=== PATIENT | female | born 1985 | race Hispanic/Latino ===

== ENCOUNTER 2018-05-08 15:50 | Day surgery (SDC) | payer SELFPAY ==
[2018-05-08 16:52] VITALS: BMI 26.2
[2018-05-08 18:00] LABS: Bilirubin Negative (Negative); Blood, Urine Negative (Negative); Clarity CLEAR (Clear); Glucose, Urine (Dipstick) Negative (Negative); Leukocyte Negative (Negative); Nitrite Negative (Negative); Protein, Urine (Dipstick) 30 mg/dL (Neg-Trace); Specific Gravity, Urine 1.027 (1.002-1.036); Urobilinogen 0.2 mg/dL (0.2-1.0)
[2018-05-08 18:05] LABS: Bacteria/HPF None Seen HPF (None Seen); Hyaline Casts/LPF 0-3 HYALINE CAST LPF (0-3 Hyaline); Pathc Cast-AUWi Flag 0.29 (0-2.49); RBC/HPF 0-3 HPF (0-3); Squamous Epithelial 0-3 HPF (0-3); WBC/HPF 0-3 HPF (0-3)
--- NOTE | 2018-05-08 19:47 | PRG ---
DATE OF SERVICE: 05/08/2018 Primary OB is in [place]. CHIEF COMPLAINT: Lower abdominal cramping and urinary hesitancy. HISTORY OF PRESENT ILLNESS: The patient is a 32-year-old G3, P2 female with an intrauterine reported at 36 weeks and 5 days, who is presenting to Labor and Delivery with complaints of vaginal discharge, "Menstrual cramping" and swelling. The patient reports that she had just completed an 18-hour car ride from [place] a couple of days ago and in the process was not feeling very well. The patient was out with family and friends today and decided to come in to be seen in case something more serious was occurring. The patient reports that she has been feeling menstrual like cramping. She also reports that she has been having more discharge than usual in the last couple of days and is having hesitancy with urination. The patient reports that she had been receiving care in [place] and had brought up her medical records with her and has an appointment tomorrow with the clinic. The patient denies any recent illness, fever, fall, headache, chest pain, shortness of breath, nausea, vomiting, diarrhea, constipation. She denies any new rashes, hip problems, knee problems, muscle weakness. Denies vaginal bleeding. Denies urinary pain. PAST MEDICAL HISTORY: Negative. PAST SURGICAL HISTORY: Negative. OBSTETRIC HISTORY: She has had 2-term vaginal deliveries. SOCIAL HISTORY: Denies drug, alcohol, tobacco use. ALLERGIES: NEGATIVE. MEDICATIONS: vitamins. OB LABS: Unavailable. REVIEW OF SYSTEMS: Per HPI. PHYSICAL EXAMINATION: VITAL SIGNS: Blood pressure 99/54, heart rate of 91, respiratory rate of 18, saturating 99% on room air, temperature 99.1. GENERAL: She appears to be in no acute distress. She is alert and oriented, cooperative and pleasant to interact with. HEAD: Normocephalic, atraumatic. LUNGS: Clear to auscultation bilaterally. HEART: Has regular rate and rhythm. ABDOMEN: Gravid, soft. She does have some suprapubic tenderness to palpation and some left lower quadrant inguinal tenderness with deviation of the uterus. She has no CVA tenderness. She has no vertebral tenderness. She does have SI joint tenderness bilaterally to palpation. EXTREMITIES: Nontender, nonedematous. : Per nursing staff, cervix is closed, thick, and high. DIAGNOSTIC DATA: heart tracing performed for menstrual cramping, baseline is noted to be in the 130s with moderate long-term variability, positive 15 x 15 accelerations and no decelerations. She has some irritability seen on the monitor, but no consistent contractions. Urinalysis shows a clear yellow urine with a pH of 8, spec gravity of 1.027, protein of 1+, negative ketones, negative blood, negative nitrites, negative leukocyte esterase, 0-3 red blood cells, 0-3 white blood cells, 0-3 squamous cells, and no bacteria. VPIII is pending results. ASSESSMENT AND PLAN: The patient is a 32-year-old female with an intrauterine at 36 weeks and 5 days, who just arrived from [place] a couple of days ago after an 18-hour car ride and has some musculoskeletal pains, ligamentous in nature. She has no evidence of urinary tract infection, though her urine is quite concentrated today. We have a VPIII pending for evaluation. No evidence of labor by cervical check or heart monitoring. Fetus has a category 1 tracing. The patient has an appointment tomorrow with clinic, which we have encouraged that she keep. We have also encouraged that she take her records there for review as she did not bring them today, so that they can update any evaluation that is necessary. Once the VPIII results are available, the patient will be discharged to home with appropriate treatment. VP3 results are negative. Job ID: [id number] [facility]
== END 2018-05-08 19:09 | disposition home or self-care (01) ==
LOC: L&D/OP 15:50
PROVIDERS: ATTEND Obstetrics & Gynecology
DX: O99.89 Other specified diseases and conditions complicating pregnancy, childbirth and the puerperium (principal); R10.30 Lower abdominal pain, unspecified; N89.8 Other specified noninflammatory disorders of vagina; Z79.899 Other long term (current) drug therapy; Z3A.36 36 weeks gestation of pregnancy
CPT/HCPCS: 81001; 87480; 87510; 87660; 99284

== ENCOUNTER 2018-05-19 22:23 | Day surgery (SDC) | payer OTHER ==
[2018-05-19 23:11] VITALS: BMI 27.1
[2018-05-19 23:28] LABS: Amnisure Internal Control QC ACCEPTABLE (ACCEPTABLE)
--- NOTE | 2018-05-19 23:34 | PDOC.LDHP ---
Labor and Delivery H&P Chief complaint: loss of fluid HPI: 32 yo at 37wks by LMP and 22wk US received from [place] presents with LOF Current gestational age (weeks): 37 Due date: 06/06/18 Dating criteria: last menstrual period, second trimester ultrasound Grav: 3 Para: 2 OB History Details: 2 LTCS Current complications: none Abnormal US findings: No (anterior placenta) Past Medical History: none Current medications: none Previous surgical history: low tranverse CS Allergies/Adverse Reactions: Allergies Allergy/AdvReac Type Severity Reaction Status Date / Time No Known Allergies Allergy Verified 05/19/18 23:00 Social history: none - Physical Exam Vital signs reviewed and normal: yes General: NAD Heart: RRR Lungs: CTAB Abdomen: NTTP Extremeties: no edema FHT: variability present (baeline 140, accels, no decels) - Vaginal Exam cm dilated: 0 Effacement: 0% Station: -3 - OB Labs Additional Labs: pt to bring labs from [place] to clinic - Plan -: ROM r/o - no pooling, post-tussive fluid, amnisure negative, closed cervix - reassuring strip - unlikely ruptured/in active labor - DC home with labor precautions Addendum - Attending - Attending Attestation Date/Time: 05/20/18 0815 I personally evaluated the patient and discussed the management with Dr. Velasco I agree with the History, Examination, Assessment and Plan documented above with any addition or exceptions noted below. No evidence for SROM. No pooling on SSE, neg amniosure.
[2018-05-19 23:37] LABS: Amnisure Test No Membranes Rupture (No Rupture)
== END 2018-05-20 00:12 | disposition home or self-care (01) ==
LOC: L&D/OP 22:23
PROVIDERS: ATTEND Emergency Medicine
DX: O99.89 Other specified diseases and conditions complicating pregnancy, childbirth and the puerperium (principal); N89.8 Other specified noninflammatory disorders of vagina; Z3A.37 37 weeks gestation of pregnancy; Z79.899 Other long term (current) drug therapy
CPT/HCPCS: 84112; 99284

== ENCOUNTER 2018-06-06 09:53 | Inpatient (IN) | payer MEDICAID, OTHER ==
[~2018-06-06 09:53] MED LIST: Bicitra 30 ML UDCUP PO SCH; CEFAZOLIN 2 GM in Premix Bag 1 BAG IVPB SCH; Ondansetron PF 4 MG/2 ML Vial IVP PRN; Promethazine HCl 25 MG/ML VIAL IM PRN
[2018-06-06] MEDS: Lactated Ringer's 1,000 ML IV SCH ×3 (10:25→16:35)
[2018-06-06 10:28] VITALS: BMI 28.0
[2018-06-06] MEDS ORDERED: Ketorolac Tromethamine 30 MG/ML VIAL ONE ×2 (10:36→12:54)
[2018-06-06] MEDS ORDERED: PHENYLEPHRINE-NS 100 MCG/ML 10 ML SYRINGE ONE ×2 (10:36→12:00)
[2018-06-06] MEDS ORDERED: Ondansetron PF 4 MG/2 ML Vial ONE ×2 (10:36→12:00)
[2018-06-06 10:43] LABS: Hemoglobin 10.4 g/dL (12.0-16.0); Mean Corpuscular HGB CONC 32.2 g/dL (32.0-36.0); Mean Corpuscular Hemoglobin 24.7 pg (27.0-31.0); Mean Corpuscular Volume 76.7 fL (78.0-98.0); Mean Platelet Volume 8.4 fL (7.4-10.4); Platelet Count 372 thou/uL (130-400); RBC Distribution Width 13.3 % (11.5-14.5); Red Blood Cell (RBC) Count 4.19 mill/uL (4.20-5.40); White Blood Cell (WBC) Count 11.4 thou/uL (4.8-10.8)
[2018-06-06 11:26] LABS: HBSAg Index 0.18 S/CO (0-0.99); Hep B Surf Ag Non-Reactive S/CO (NonReactive)
[2018-06-06] MEDS ORDERED: Oxytocin 10 UNITS/ML VIAL ONE ×2 (11:59→13:33)
[2018-06-06] MEDS ORDERED: ePHEDrine/0.9% NaCl/PF SYRINGE 50 mg/10 ml ONE ×2 (12:00→16:00)
[2018-06-06] MEDS ORDERED: Morphine PF 1 MG/ML SYR ONE (12:03)
[2018-06-06] MEDS ORDERED: Promethazine HCl 25 MG/ML VIAL IM PRN ×2 (12:52→16:56)
[2018-06-06] MEDS ORDERED: Ondansetron PF 4 MG/2 ML Vial IVP PRN (12:52)
[2018-06-06] MEDS ORDERED: Eucerin (Mineral Oil/Petrolatum,White) 30 gm Jar TOP PRN (12:52)
[2018-06-06] MEDS ORDERED: Naloxone HCl 0.4 mg/ml Vial IV PRN (12:52)
[2018-06-06] MEDS ORDERED: Promethazine HCl 25 MG SUPP PR PRN (12:52)
[2018-06-06] MEDS ORDERED: Naloxone HCl 0.4 mg/ml Vial IVP PRN ×2 (12:52)
[2018-06-06] MEDS ORDERED: Ketorolac Tromethamine 30 MG/ML VIAL IVP PRN (12:52)
[2018-06-06] MEDS ORDERED: diphenhydrAMINE 50 MG/ML VIAL IVP PRN (12:52)
[2018-06-06] MEDS ORDERED: Midazolam HCl 2 mg/2 ml Vial ONE (12:55)
[2018-06-06] MEDS ORDERED: Communication Order-Pharmacy FS SCH (13:00)
--- NOTE | 2018-06-06 14:16 | PDOC.FPROB ---
FMR OB H&P: HPI - History of Present Illness Chief Complaint: scheduled repeat delivery Indentification: 32 yo female at 39.4 wks by LMP/22.5 wk sono History of Present Illness: Ms Mendez is a 32 yo female at 39.4 wks by LMP/22.5 wk sono admitted for scheduled repeat delivery. Patient denies any complications or symptoms. Reports good movement. Denies LOF, contractions, vaginal bleeding, or discharge. Primary Care Physician: Adry Camilo MD and Deandre López DO clinic FMR OB H&P: Current - Care : 3 Para: 2001 Gestational age: 39.4 wks Due date: 06/09/2018 Dating Criteria: LMP/22.5 wk sono Total weight gain: 15 lbs Course/Complications: Late transfer of care from [place], Anemia of , hx of LTCS x2, hx of blood transfusion after second delivery - OB Labs Blood type: O RH: positive Antibody Screen: negative HIV: negative RPR: negative HepBsAg: negative Rubella: immune Quad screen: unknown Urine drug screen: not done Gonorrhea: negative Chlamydia: negative Pap Smear: NILM/HPV positive (05/20/2018) 1 hour gtt: not done A1c: 5.7% GBS: negative (05/20/18) H&H: 10.05/01.3 Platelets: 347 Additional labs: TB screening negative Zika negative - First Trimester Ultrasound First trimester: not done - Anatomy Survey Anatomy survey: Performed in [place]. Report translated. Performed at 22.5 wks. Grossly normal anatomy. Male fetus. Anterior placenta. - Additional Ultrasound Additional: 37.1 wks EFW = 3248g (68%) ALEX = 8.59 cm Cephalic Anterior placenta. Not low lying. Limited anatomy grossly normal. Gender not identified. FMR OB H&P: History - Past Medical History PMH: none - OB History OB History: 05/02/11: 39 wks 7 lb 12 oz male delivery arrest of labor 07/21/12: 39 wks 6 lb 13 oz female delivery required blood transfusion after delivery - [employer] History [employer] History: menes age 13, LMP = 09/02/2017, Denies STI and abnormal pap smears - Surgical History Sx History: delivery x2 -- LTCS - Social History Social History: . 2 children. Lives in [place]. Denies T/A/D use. Denies abuse. - Family History Family History: Diabetes, child with abnormal genitalia FMR OB H&P: Medications - Current Home Medications: Medication Instructions Recorded Confirmed Type Ferrous Sulfate [Iron] 325 mg PO DAILY 05/08/18 05/08/18 History Pnv,Calcium 72/Iron/Folic Acid 1 tab PO DAILY 05/08/18 05/08/18 History [ Plus Tablet] Calcium Carbonate [Tums Extra 2 tablet PO Q2HR PRN 05/19/18 05/19/18 History Strength] Allergies/Adverse Reactions: Allergies Allergy/AdvReac Type Severity Reaction Status Date / Time No Known Allergies Allergy Verified 06/06/18 10:18 FMR OB H&P: ROS - Review of Systems General: reports: fatigue. denies: fever/chills, weight/appetite/sleep changes Eyes: denies: eye pain, vision changes, double vision, scotomas, floaters ENT: denies: nasal congestion, rhinorrhea Cardiovascular: denies: chest pain, palpitation, edema Respiratory: denies: cough, congestion, shortness of breath Gastrointestinal: denies: abdominal pain, indigestion, cramping, nausea, vomiting, diarrhea, constipation Genitourinary (Female): denies: dysuria, hematuria, vaginal discharge, vaginal bleeding, contractions Musculoskeletal: denies: pain, stiffness, swelling Neurologic: denies: numbness, weakness Integumentary: denies: rash, lesions Breast: denies: masses, skin changes Hematologic/Lymphatic: denies: prolonged or excessive bleeding, enlarged lymph nodes Psychological: denies: depression, anxiety FMR OB H&P: Vital Signs - Maternal Vital signs: Vital Signs - First Documented Temp Pulse Resp BP 98.0 F 83 18 105/66 06/06/18 10:19 06/06/18 10:19 06/06/18 10:19 06/06/18 10:19 - Heart Tones Baseline: 140 Variability: moderate Acceleration: present Deceleration: absent Category: category 1 [place] contractions every: occasional FMR OB H&P: Physical Exam - Physical Exam General: NAD, awake, alert and oriented HEENT: normocephalic and atraumatic, PERRLA, EOMI, MMM, conjunctiva clear, grossly normal vision, grossly normal hearing, normal nasal mucosa, good dention Neck: supple, FROM, trachea midline Chest: non-tender to palpation, no lesions Heart: RRR, normal S1/S2, pulses present, no edema General: CTAB, no respiratory distress, good air movement Abdomen: soft, gravid, fundus(cm) (37), non-tender, bowel sound present, no hernias Musculoskeletal: normal gait and station, pulses present, FROM in all four extremities Neurological: cranial nerves II through XII intact, sensation to pain,touch and proprioception grossly normal Skin: no rash, good tugor Lymphatic: no unusual bruising or bleeding Psychiatric: good judgement and insight, normal mood and affect - Pelvic Exam Presentation: Cephalic Estimated Weight: 7 lbs FMR OB H&P: Results - Labs Lab results: Laboratory Results - last 24 hr 06/06/18 06/06/18 06/06/18 10:26 10:26 10:26 WBC 11.4 H RBC 4.19 L Hgb 10.4 L Hct 32.2 L MCV 76.7 L MCH 24.7 L MCHC 32.2 RDW 13.3 Plt Count 372 MPV 8.4 Hep Bs Antigen Non-Reactive Blood Type O POSITIVE Antibody Screen NEGATIVE Crossmatch See Detail 06/06/18 11:55 WBC RBC Hgb Hct MCV MCH MCHC RDW Plt Count MPV Hep Bs Antigen Blood Type O POSITIVE Antibody Screen Crossmatch - Imaging Imaging: Bedside sono: Cephalic. Grossly normal ALEX. Anterior placenta. High bladder, concern for scaring. FMR OB H&P: A/P - Problem List (1) Current Visit: Yes Status: Acute Qualifiers: Weeks of gestation: 39 weeks Qualified Code(s): Z3A.39 - 39 weeks gestation of Assessment and Plan: IOB labs reviewed. Anatomy reviewed. 3T sono report reviewed. s/p Flu. Needs Tdap prior to discharge. GBS negative. Would like LARC for contraception. (2) History of delivery affecting Current Visit: Yes Status: Acute Code(s): O34.219 - MATERNAL CARE FOR UNSP TYPE SCAR FROM PREVIOUS DEL Assessment and Plan: Scheduled for repeat LTCS today. R/B/A discussed. Questions answered. Consents signed. Admission labs reviewed. Placenta anterior and low. Bladder appears high , concern for possible scarring of bladder to lower uterine segment. Fetus cephalic. EFW 7.5 to 8 lbs by [place]. (3) Anemia affecting in third trimester Current Visit: Yes Status: Acute Code(s): O99.013 - ANEMIA COMPLICATING , THIRD TRIMESTER Assessment and Plan: H&H stable. Will continue PNV in period. Increase iron rich foods. Add supplemental iron as needed. Will repeat H&H in the morning. (4) Late care affecting in third trimester Current Visit: Yes Status: Acute Code(s): O09.33 - SUPRVSN OF PREG W INSUFFICIENT ANTENAT CARE, THIRD TRIMESTER Assessment and Plan: Poor initial care. Late transfer from [place]. TB and Zika negative. Anatomy sono performed in [place]. Sibling with ambiguous female genitalia. No genetic screening. Limited 3T sono. (5) History of blood transfusion Current Visit: Yes Status: Acute Code(s): Z92.89 - PERSONAL HISTORY OF OTHER MEDICAL TREATMENT Assessment and Plan: Unsure need for blood transfusion other than anemia with last delivery. Will place 2 units on hold. Disposition: Proceed to OR when available. Signature: Alex
--- NOTE | 2018-06-06 14:16 | PDOC.OP ---
Operative Note - Operative Note Operative Note: Date of Procedure: 06/06/2018 Primary Surgeon: Sarita Camilo MD City Carrier Assistant Surgeon: Katherine López DO Preoperative Diagnosis: 1. Pacheco intrauterine at 39.4 weeks gestation dated by LMP/22.5 wk sono 2. Late transfer of care from [place] 3. Anemia of 4. Previous history of blood transfusion 5. History of LTCS x2 Postoperative Diagnosis: 1. Same Procedure Performed: 1. Repeat low transverse section 2. Lysis of adhesions Anesthesia: Spinal Indications for the Procedure: Ms. Mendez is a 32 year old female at 39.4 weeks gestation by LMP/22.5 wks sono admitted for scheduled repeat low transverse delivery. Surgical risks: The patient was informed of the risk and benefits of the procedure. Risks included but were not limited to bleeding, infection, injury to internal organs , and possible hysterectomy. The patient expressed understanding of the risks involved. All questions were answered and the patient consented to the procedure. Description of the procedure: The patient was taken to the operating room where a time out was performed to confirm correct patient and correct procedure. Spinal was adequately established and prophylactic IV antibiotics were administered. The patient was then placed in the dorsal supine position with a left tilt of the hips. Pressure points were padded. A Bovie grounding pad was placed on the patients right lower extremity. Pearce catheter was placed to monitor urine output during the case. A Chaitanya hugger was placed to maintain control of core body temperature. The patient was then prepped and draped in the usual sterile fashion for a Pfannensteil skin incision. An incision was made in the skin with a surgical scalpel and sharp and blunt dissection was carried out over the subsequent layers of tissue including the fascia, followed by the Bovie electrocautery for hemostasis. The fascia was incised at the midline. The fascial incision was extended bilaterally using curved Monsalve scissors/blunt dissection. The superior edge of the fascial incision was grasp with Mervin clamps, tented up and the underlying rectus muscles were dissected off bluntly and sharply using Bovie electrocautery. Attention was then turned to the inferior edge, which was grasped with Mervin clamps, tented up and the underlying rectus muscles were dissected off bluntly and sharply using curved Monsavle scissors. The rectus muscles were then divided at midline. The peritoneum was identified and bluntly entered at its superior margin taking care to avoid the bladder. The peritoneal incision was extended superiorly/inferiorly/laterally using blunt dissection/Bovie electrocautery with good visualization of the bladder and bowel. One large uterine adhesion was identifited and dissected with care with Bovie electrocautery. The bladder blade was inserted. The vesicouterine peritoneum was identified and noted to be adhessed to lower uterine segment. The peritoneum was picked up with Barbadian forceps and cut laterally to both sides using Metzenbaum scissors. A bladder flap was then created using blunt and sharp dissection. The bladder blade was reinserted and a transverse incision was made in the lower uterine segment using the scalpel. The uterine incision was extended cranial and caudally using blunt dissection. The surgeons hand was placed into the uterine cavity. The head was identified, elevated into the abdomen and delivered through the uterine incision with the assistance of fundal pressure. The infant was delivered en caul. No nuchal cord was identified. The was then delivered with traction and the assistance of fundal pressure. The had strong cry. Cord clamping was delayed for at least 60 seconds was clamped and cut. The was then passed off the table to the awaiting lorena team for further care. Cord blood was collected for routine analysis. The placenta was expressed manually intact with three-vessel cord. Oxytocin was administered by IV infusion to enhance uterine contractions. The uterus was exteriorized and cleared of all clots and remaining products of conception. The uterine incision was reapproximated using 0 Monocryl in a running locked fashion. A second horizontal imbricating stitch with 0 Monocryl suture was applied.Non-hemostatic areas were reinforced using 0 Monocryl suture in [id number] stitches x1. Good hemostasis was confirmed. The abdomen was evaluated, suctioned and cleared of visible clots. The uterus was replaced into the abdomen and the pericolic gutter were cleared of all clots. The fascia was reapproximated using 0 PDS in a running non-locked fashion. Fascia and surrounding tissue were irrigated with warm NS followed by Bovie electrocautery for non-hemostatic areas. The subcuticular tissue was reapproximated using 3-0 Plain Gut in simple interrupted fashion. The skin was reapproximated using 4-0 Monocryl. Dermabond along with a pressure dressing were placed at the end of the case. All needle, sponge, and instrument counts were noted to be correct x 3 at the end of the procedure. The patient tolerated the procedure well and was transferred to the recovery room in stable condition. Intravenous Fluids: 2 L LR Urine output: 300 mL, clear urine Qualitative Blood Loss: 595 mL Findings: Viable Male delivered at 13:00 weighing 3512g with scores of 8 and 9 at one and five minutes, respectively. Normal appearing uterus, ovaries, and fallopian tubes bilaterally. Placenta intact with 3VC, discarded. Complications: Large uterine band-like adhesion Disposition: Routine recovery. Once stable, routine care. Alex
[2018-06-06] MEDS: ePHEDrine/0.9% NaCl/PF SYRINGE 50 mg/10 ml SLOW IVP SCH ×2 (16:04→16:36)
[2018-06-06] MEDS ORDERED: diphenhydrAMINE 25 MG CAP PO PRN (16:56)
[2018-06-06] MEDS ORDERED: Simethicone Chewable 80 MG TAB PO PRN (16:56)
[2018-06-06] MEDS ORDERED: Bisacodyl 10 MG SUPP PR PRN (16:56)
[2018-06-06] MEDS ORDERED: Acetaminophen 325 MG TAB PO PRN (16:56)
[2018-06-06] MEDS ORDERED: NS / Oxytocin 40 units/1000ml 1,000 ML IV SCH (16:56)
[2018-06-06] MEDS ORDERED: Adacel (T-DAP) 0.5 ML SYRINGE IM ONE (16:56)
[2018-06-06] MEDS ORDERED: Lanolin Ointment 7 GM TUBE TOP PRN (16:56)
[2018-06-06] MEDS ORDERED: Lactated Ringer's 500 ML IV SCH (17:00)
--- NOTE | 2018-06-06 17:02 | PDOC.EVN ---
Event Note - Event Note Event Note: Called by Dr. López for hypotension. I was observing during the . Case was hemostatic upon closure. Patient initially systolic low 100's at termination of surgery and eventually dropped to the 70's, at which point anesthesia was called and ephedrine was given with improvement. Upon arrival patient mentating well, smiling, in no distress and says she is very comfortable. RRR s M CTAB s w/r/r Soft abdomen, NTTP, dressing in place and dry, no ecchymosis visible Toilette has been as expected FAST SC with no effusion, good squeeze Neg nguyen's, sig gas as expected LUQ with unremarkable spleen and kidney Suprapubic with uterus as expected and no echolucent areas or mixed echogenicity to suggest recent bleed I anticipate hypotension 2/2 anesthesia, no sign of bleeding requiring reoperation. Monitor closely. Handoff given to night team and I will update Dr. López. BP in the 90's at my last evaluation. CBC will be ordered.
[2018-06-06 18:05] LABS: #Basophils 0.1 thou/uL (0.0-0.2); #Eosinphils 0.1 thou/uL (0.0-0.7); #Lymphocytes 1.6 thou/uL (1.20-3.40); #Neutrophils 9.7 thou/uL (1.40-6.50); %Basophils 0.5 % (0.0-1.0); %Eosinophils 0.5 % (0.0-10.0); %Lymphocytes 12.9 % (21.0-51.0); %Monocytes 7.9 % (0.0-10.0); %Neutrophils 78.2 % (42.0-75.0); Hemoglobin 9.6 g/dL (12.0-16.0); Mean Corpuscular HGB CONC 31.1 g/dL (32.0-36.0); Mean Corpuscular Volume 80.3 fL (78.0-98.0); Mean Platelet Volume 8.2 fL (7.4-10.4); Platelet Count 302 thou/uL (130-400); RBC Distribution Width 13.3 % (11.5-14.5); Red Blood Cell (RBC) Count 3.83 mill/uL (4.20-5.40); White Blood Cell (WBC) Count 12.4 thou/uL (4.8-10.8)
[2018-06-07] MEDS ORDERED: HYDROcodone/Acetaminophen 5/325 mg Tablet PO PRN ×2 (01:00)
[2018-06-07] MEDS ORDERED: Lactated Ringer's 1,000 ML IV SCH (03:15)
--- NOTE | 2018-06-07 03:36 | PDOC.EVN ---
Event Note - Event Note Event Note: Paged by nursing at 0100 that patients BP was 70s/40s. Patient examined by myself and Dr. Simons. Gave order to bolus remainder of LR with pitocin ( approximately 600 mL). After bolus, BP remained unchanged. Gave order to bolus additional 1L of LR. This brought BP to 90/53 (MAP 65). Will add lactic acid to AM labs to verify adequate tissue perfusion and continue LR at 125 mL/hr. Hypotension likely due to spinal anesthesia that is finally resolving vs dehydration. Patient does not exhibit any signs of intraabdominal hemorrhage and had negative FAST scan early today. If BP drops again, will repeat FAST and consider obtaining CT- Abdomen and pelvis to further evaluate. Patient has had minimal vaginal bleeding during this time. Discussed with Dr. Dillard.
[2018-06-07 03:39] LABS: Hemoglobin 9.2 g/dL (12.0-16.0); Mean Corpuscular HGB CONC 31.8 g/dL (32.0-36.0); Mean Corpuscular Hemoglobin 25.5 pg (27.0-31.0); Mean Corpuscular Volume 80.2 fL (78.0-98.0); Mean Platelet Volume 8.1 fL (7.4-10.4); Platelet Count 307 thou/uL (130-400); RBC Distribution Width 13.4 % (11.5-14.5); White Blood Cell (WBC) Count 12.2 thou/uL (4.8-10.8)
[2018-06-07] MEDS: Lactated Ringer's 1,000 ML IV SCH ×3 (03:46→21:24)
[2018-06-07 03:55] LABS: Lactic Acid 1.7 mmol/L (0.5-2.2)
[2018-06-07] MEDS: Docusate Calcium (SURFAK) 240 MG CAP PO SCH ×3 (04:01→21:25)
[2018-06-07] MEDS: Prenatal Vitamin 1 TAB PO SCH (09:18)
[2018-06-07] MEDS ORDERED: Diabetic Tussin 200 MG/10 ML UDCUP PO PRN (12:40)
[2018-06-07] MEDS ORDERED: Loratadine 10 MG TAB PO PRN (12:41)
--- NOTE | 2018-06-07 12:43 | PDOC.PP ---
Post Progress Note Post Day #: 1 Subjective: 32 yo [id number] POD # 1 s/p uncomplicated RLTCS. Has had low blood pressures intermittently but currently running in 90s systolic. She denies CP, SOB, dizziness. +Spontaneous urination s/p removal of fry. No flatus yet but tolerating PO without nausea/vomiting Bleeding is light. Pain controlled. She complains of allergy symptoms and coughing. The cough is causing some abdominal pain PO intake tolerated: yes Flatus: no Ambulation: yes Vital Signs (12 hours) Temp Pulse Resp BP Pulse Ox 06/07/18 12:13 98.7 F 95 20 93/54 L 06/07/18 10:16 92/53 L 06/07/18 08:05 98.6 F 82 20 86/54 L 98 06/07/18 07:50 98 06/07/18 05:45 98.5 F 86 18 89/51 L 96 06/07/18 03:15 98.0 F 91 16 90/53 L 98 06/07/18 02:30 88 79/47 L 06/07/18 00:42 89 74/49 L Weight Weight 69.4 kg - Physical Examination General: NAD Respiratory: non-labored breathing Abdominal: lochia, no distention, appropriately TTP Fundus firm & at: 1cm below umbilicus Skin: CS incision dry & intact Deviation from normal: mild bruising surrouding incision Neurological: no gross focal deficits Psychiatric: A&Ox3, normal affect Result Diagrams: 06/07/18 03:29 Additional Labs: Post Labs Blood Type O POSITIVE 06/06/18 11:55 Hep Bs Antigen Non-Reactive S/CO (NonReactive) 06/06/18 10:26 (1) Status post repeat low transverse section Code(s): Z98.891 - HISTORY OF UTERINE SCAR FROM PREVIOUS SURGERY Status: Acute Comment: Meeting appropriate milestones. Continue routine postop care. Anticipate d/c to home on POD #2 or 3 (2) Postoperative anemia Code(s): D64.9 - ANEMIA, UNSPECIFIED Status: Acute Comment: Acute blood loss anemia superimposed on chronic anemia of Asymptomatic PO iron to be started at discharge (3) Allergic rhinitis Code(s): J30.9 - ALLERGIC RHINITIS, UNSPECIFIED Status: Acute Comment: Start claritin and robitussin (4) Hypotension Status: Acute Comment: Improved today. Asymptomatic She has baseline low BP and suspect the acute worsening was due to anesthetic Continue close monitoring
[2018-06-07] MEDS: Ibuprofen 800 MG TAB PO SCH ×2 (14:27→21:25)
[2018-06-08] MEDS: Lactated Ringer's 1,000 ML IV SCH ×2 (06:22→09:34)
[2018-06-08] MEDS: Ibuprofen 800 MG TAB PO SCH ×2 (06:24→08:59)
[2018-06-08] MEDS: Docusate Calcium (SURFAK) 240 MG CAP PO SCH (08:59)
[2018-06-08] MEDS: Prenatal Vitamin 1 TAB PO SCH (08:59)
[2018-06-08] MEDS ORDERED: traMADol HCl 50 MG TAB PO PRN (09:23)
--- NOTE | 2018-06-08 10:35 | PDOC.PP ---
Post Progress Note Subjective: 32 yo [id number] POD # 2 s/p uncomplicated RLTCS. Doing well this morning . Complains of moderate pain but has not been taking even ibuprofen for pain. Tolerating PO. +Flatus. +Spontaneous urination. Ambulating without dizziness. No further issues with hypotension. PO intake tolerated: yes Flatus: yes Ambulation: yes Vital Signs (12 hours) Temp Pulse Resp BP Pulse Ox 06/08/18 08:50 98.2 F 91 16 90/54 L 100 06/08/18 04:00 97.0 F L 98 16 97/55 L Weight Weight 69.4 kg - Physical Examination General: NAD Cardiovascular: RRR Respiratory: clear to auscultation bilaterally Abdominal: + bowel sounds, no distention, appropriately TTP Fundus firm & at: 2 below umbilicus Skin: CS incision dry & intact, no rash Neurological: no gross focal deficits Psychiatric: A&Ox3, normal affect Result Diagrams: 06/07/18 03:29 Additional Labs: Post Labs Blood Type O POSITIVE 06/06/18 11:55 Hep Bs Antigen Non-Reactive S/CO (NonReactive) 06/06/18 10:26 (1) Status post repeat low transverse section Code(s): Z98.891 - HISTORY OF UTERINE SCAR FROM PREVIOUS SURGERY Status: Acute Comment: Meeting appropriate milestones. Continue routine postop care. Pt unsure if she wants to go home today or tomorrow. If she requests can d/c tonight. Otherwise anticipate d/c to home on POD # 3 (2) Postoperative anemia Code(s): D64.9 - ANEMIA, UNSPECIFIED Status: Acute Comment: Acute blood loss anemia superimposed on chronic anemia of Asymptomatic PO iron to be started at discharge (3) Allergic rhinitis Code(s): J30.9 - ALLERGIC RHINITIS, UNSPECIFIED Status: Acute Comment: Start claritin and robitussin Respiratory panel negative. (4) Hypotension Status: Resolved Comment: Resolved. Likely secondary to anesthetic. Prescribing tramdol for pain due to hypotension with opiates
[2018-06-08 11:57] VITALS: BP 97/58; TEMP 97.8
== END 2018-06-08 18:40 | disposition home or self-care (01) | DRG 787 ==
LOC: L&D 09:53 → 3SW 18:32
PROVIDERS: ADMIT Family Medicine; ATTEND Family Medicine
PROC: 10D00Z1 Extraction of Products of Conception, Low, Open Approach (ICD-10-PCS; principal; 2018-06-06)
DX: O34.211 Maternal care for low transverse scar from previous cesarean delivery (principal); D62 Acute posthemorrhagic anemia; Z3A.39 39 weeks gestation of pregnancy; Z37.0 Single live birth; O99.02 Anemia complicating childbirth; D64.89 Other specified anemias; N85.8 Other specified noninflammatory disorders of uterus; Z92.89 Personal history of other medical treatment; I95.2 Hypotension due to drugs; O90.89 Other complications of the puerperium, not elsewhere classified; J30.9 Allergic rhinitis, unspecified
CPT/HCPCS: 36415; 51702; 76815; 83605; 85027; 86850; 86900; 86901; 87340; 87633; 87798; 90715; J1885; J2250; J2274; J2405; J2590